=== PATIENT | female | born 1965 | race Caucasian/White ===

== ENCOUNTER 2020-06-01 08:54 | Outpatient (CLI) | payer MEDICARE, SELFPAY ==
--- NOTE | 2020-06-01 09:02 | US_ITS ---
WS: [id number] ADDITIONAL VIEWS LEFT MAMMOGRAM LEFT BREAST ULTRASOUND HISTORY: LT BREAST MASS COMPARISON: 02/25/2013, 04/20/2020, 07/25/2011 LEFT MAMMOGRAM: Spot compression views and true ML. Slightly lobulated asymmetry measuring 6.4 mm is noted in the posterior mid LEFT breast on the CC pro jection only. Cannot definitely identify this asymmetry on additional views. No mole markers are plac ed. There are no skin lesions identified. LEFT BREAST ULTRASOUND 2-D and color Doppler imaging submitted. Ultrasound is directed to the posterior LEFT breast at 12 and 6:00 and just lateral to the nipple linn e. No mass identified. US/US breast LT limited* [id number] IMPRESSION: BI-RADS: 3-Probably Benign FOLLOW UP: 6 Month Follow-up Lobulated 6.4 mm asymmetry is seen only in the LEFT CC projection. This is not identified by ultrasound or on additional mammographic views. Six-month mammogr aphic and ultrasound follow-up is recommended. Alternatively, attempted stereot actic biopsy can be performed. This asymmetry may be visible with stereotactic biopsy.
== END 2020-06-01 08:55 | disposition home or self-care (01) ==
LOC: RADSHAW 08:59
PROVIDERS: PCP Electrodiagnostic Medicine; Visit Provider Electrodiagnostic Medicine
DX: N63.20 Unspecified lump in the left breast, unspecified quadrant (principal); N64.89 Other specified disorders of breast
CPT/HCPCS: 76642; 77065

== ENCOUNTER → 2020-09-28 10:39 | Outpatient (BNVA) | payer MEDICARE, SELFPAY | PROVIDERS: PCP Electrodiagnostic Medicine; Visit Provider Urology | DX: N30.10 Interstitial cystitis (chronic) without hematuria (principal) | CPT/HCPCS: 81003 ==

== ENCOUNTER → 2021-09-27 10:45 | Outpatient (BNVA) | payer SELFPAY | PROVIDERS: PCP Electrodiagnostic Medicine; Visit Provider Urology | DX: N30.10 Interstitial cystitis (chronic) without hematuria (principal) | CPT/HCPCS: 81003 ==

== ENCOUNTER 2022-08-08 08:55 | Outpatient (CLI) | payer MEDICARE, MEDICAID, SELFPAY ==
--- NOTE | 2022-08-08 09:11 | CT_ITS ---
WS: [id number] CT NECK TECHNIQUE: Contrast-enhanced CT of the neck with coronal and sagittal reformatted images. CLINICAL INFORMATION: ACUTE LYMPHADENITIS COMPARISON: None. DLP: 282.[address] scans at [facility] use at least one of these dose optimization techniques: automated e xposure control; mA and/or kV adjustment per patient size (includes targeted exams where dose is matc hed to clinical indication); or iterative reconstruction. FINDINGS: Parotid glands are normal in appearance. Normal submandibular glands. Normal posterior nasopharynx. N ormal parapharyngeal fat. Normal palatine tonsils. No evidence of supraglottic or glottic mass. Michelle l thyroid gland. Partially visualized paranasal sinuses are well aerated. Mastoid air cells are well aerated. Partiall y visualized intracranial contents and posterior fossa appear normal. No evidence of supraglottic or glottic mass. Normal glottis. Normal subglottic airway. Normal thyroid gland. Lung apices are well ae rated. Straightening of the normal cervical lordosis. Prior postoperative changes C5-C6 with ACDF. Mild spon dylitic changes. No cervical lymphadenopathy. CT/CT neck w con* [id number] IMPRESSION: 1. Mastoid air cells are well aerated bilaterally. Normal posterior nasopharyn x. Normal parapharyngeal fat. 2. No evidence of supraglottic or glottic mass. 3. Normal salivary glands.4 4. No cervical lymphadenopathy. 5. Straightening of the normal cervical lordosis. Moderate spondylitic changes . ACDF C5-C6.
[2022-08-08] MEDS: iohexol 350 mg/mL 100 mL Btl IV (09:24)
== END 2022-08-08 08:56 | disposition home or self-care (01) ==
LOC: RAD 08:56
PROVIDERS: PCP Electrodiagnostic Medicine; Visit Provider Specialist
DX: L04.9 Acute lymphadenitis, unspecified (principal)
CPT/HCPCS: 70491

== ENCOUNTER 2022-09-06 14:49 | Outpatient (RCR) | payer MEDICARE, SELFPAY | END 2022-09-20 23:59 | disposition home or self-care (01) | LOC: SPT 14:49 | PROVIDERS: PCP Electrodiagnostic Medicine; Visit Provider Electrodiagnostic Medicine | DX: M50.20 Other cervical disc displacement, unspecified cervical region (principal) | CPT/HCPCS: 97110; 97161 ==

== ENCOUNTER 2022-09-21 06:00 | Outpatient (RCR) | payer MEDICARE, SELFPAY | END 2022-10-09 16:06 | disposition home or self-care (01) | LOC: SPT 06:00 | PROVIDERS: PCP Electrodiagnostic Medicine; Visit Provider Electrodiagnostic Medicine | DX: M50.20 Other cervical disc displacement, unspecified cervical region (principal) | CPT/HCPCS: 97110 ==

== ENCOUNTER → 2022-09-26 09:25 | Outpatient (BNVA) | payer MEDICARE, SELFPAY | PROVIDERS: PCP Electrodiagnostic Medicine; Visit Provider Urology | DX: N30.10 Interstitial cystitis (chronic) without hematuria (principal) | CPT/HCPCS: 81003; 99213 ==

== ENCOUNTER 2023-07-09 13:00 | Outpatient (CLI) | payer MEDICARE, SELFPAY | END 2023-07-09 13:01 | disposition home or self-care (01) | LOC: SLEEP 07-10 12:57 | PROVIDERS: PCP Electrodiagnostic Medicine; Visit Provider Otolaryngology | DX: G47.33 Obstructive sleep apnea (adult) (pediatric) (principal) | CPT/HCPCS: G0399 ==

== ENCOUNTER 2024-04-17 10:40 | Outpatient (CLI) | payer MEDICARE, SELFPAY ==
--- NOTE | 2024-04-17 12:07 | MM_ITS ---
WS: [id number] BILATERAL SCREENING DIGITAL TOMOSYNTHESIS MAMMOGRAM WITH CAD HISTORY: SCREENING COMPARISON: 06/01/2020, 04/20/2020, 03/18/2015 Bilateral CC and MLO views with tomosynthesis and synthetic mammography submitted. Computer aided det ection analyzed. Breast composition: There are scattered areas of fibroglandular density. No suspicious masses, microc alcifications or architectural distortion. Lobulated mass measures 7 mm in the posterior central LEFT breast. This is been described on prior studies with only slight increase in size. No suspicious mas s or calcification otherwise. MM/[place] [id number] IMPRESSION: BI-RADS: 2-Benign FOLLOW UP: 1 Year Follow-up
== END 2024-04-17 10:41 | disposition home or self-care (01) ==
LOC: RAD 10:41
PROVIDERS: PCP Electrodiagnostic Medicine; Visit Provider Electrodiagnostic Medicine
DX: Z12.31 Encounter for screening mammogram for malignant neoplasm of breast (principal); R92.323 Mammographic fibroglandular density, bilateral breasts; N60.12 Diffuse cystic mastopathy of left breast
CPT/HCPCS: 77063; 77067

== ENCOUNTER 2025-09-14 11:03 | Outpatient (CLI) | payer MEDICARE, SELFPAY ==
--- NOTE | 2025-09-14 11:15 | MM_ITS ---
WS: [id number] BILATERAL 3D TOMOSYNTHESIS DIGITAL SCREENING MAMMOGRAPHY WITH CAD CLINICAL INFORMATION: SCREENING HISTORY: Screening mammogram. No current complaints. COMPARISON: 2023 TECHNIQUE: Bilateral CC and MLO views. FINDINGS: Scattered fibroglandular densities bilaterally. No suspicious focal mass, asymmetry, calcifications, or architectural distortion. No evidence of malignancy. Stable ovoid nodule 7 mm posterior central RIGHT breast. MM/MM scr tomosynthesis [id number] IMPRESSION: DENSITY: There are scattered areas of fibroglandular density. BI-RADS: 2 - Benign. FOLLOW UP: 1 Year Follow-up Recommend return to annual screening mammography.
== END 2025-09-14 11:04 | disposition home or self-care (01) ==
LOC: RAD 11:04
PROVIDERS: PCP Electrodiagnostic Medicine; Visit Provider Electrodiagnostic Medicine
DX: Z12.31 Encounter for screening mammogram for malignant neoplasm of breast (principal); R92.323 Mammographic fibroglandular density, bilateral breasts; N63.10 Unspecified lump in the right breast, unspecified quadrant
CPT/HCPCS: 77063; 77067

== ENCOUNTER → 2025-09-28 15:57 | Outpatient (BNVA) | payer MEDICARE, SELFPAY | PROVIDERS: PCP Electrodiagnostic Medicine; Visit Provider Obstetrics & Gynecology | DX: Z12.4 Encounter for screening for malignant neoplasm of cervix (principal) | CPT/HCPCS: 87624 ==